=== PATIENT | male | born 1985 | race African-American/Black ===

== ENCOUNTER 2018-02-11 20:16 | Emergency (ER) | payer OTHER ==
[~2018-02-11] VITALS: Ht 180.3 cm; Wt 81.7 kg
[2018-02-11 20:19] VITALS: BP 125/78
[2018-02-11] MEDS ORDERED: NORCO 5-325 TA1 EACH PO (20:41)
[2018-02-11] MEDS ORDERED: PREDNISONE 20 M20 MG PO (20:41)
[2018-02-11] MEDS ORDERED: VALIUM2 MG PO (20:41)
== END 2018-02-11 21:03 | disposition home or self-care (01) ==
LOC: ER 20:16
DX: M54.12 Radiculopathy, cervical region (principal); M25.512 Pain in left shoulder; F17.210 Nicotine dependence, cigarettes, uncomplicated

== ENCOUNTER 2018-09-02 15:12 | Emergency (ER) | payer OTHER ==
[~2018-09-02] VITALS: Ht 180.3 cm; Wt 83.9 kg
[~2018-09-02 15:12] MED LIST: NORCO 5-325 TA1 EACH PO; PREDNISONE 20 M20 MG PO; VALIUM2 MG PO
[2018-09-02 15:31] VITALS: BP 118/66
[2018-09-02] MEDS ORDERED: NORCO 10-325 T1 EACH PO (16:07)
[2018-09-02] MEDS ORDERED: MEDROLDOSEPACK PO (16:07)
[2018-09-02] MEDS ORDERED: CYCLOBENZAPRINE5 MG PO (16:07)
== END 2018-09-02 16:30 | disposition home or self-care (01) ==
LOC: ER 15:12
DX: M54.5 Low back pain (principal)